=== PATIENT | female | born 1975 | race Caucasian/White ===

== ENCOUNTER 2016-11-06 13:45 | Emergency (ER) | payer MEDICAID ==
[2016-11-06] MEDS ORDERED: SODIUM CHLORIDE 0.9% 1,000 ML ONE ×2 (14:52→17:11)
[2016-11-06] MEDS ORDERED: humuLIN REG INSULIN ONE (17:09)
== END 2016-11-06 17:37 | disposition home or self-care (01) ==
LOC: ER 13:45
DX: R07.89 Other chest pain (principal); E11.65 Type 2 diabetes mellitus with hyperglycemia; Z79.4 Long term (current) use of insulin
CPT/HCPCS: 36415; 71010; 80053; 81001; 82553; 82947; 83735; 84484; 84703; 85025; 93005; 96360; 96361; 96372

== ENCOUNTER 2016-11-11 12:03 | Emergency (ER) | payer MEDICAID ==
[2016-11-11] MEDS ORDERED: DIPHENHYDRAMINE 50 MG/ML VIAL ONE (12:50)
[2016-11-11] MEDS ORDERED: METOCLOPRAMIDE 10 MG/2 ML VIAL ONE (12:50)
[2016-11-11] MEDS ORDERED: KETOROLAC 30 MG/ML VIAL ONE (13:54)
[2016-11-11] MEDS ORDERED: ACETAMIN/BUTALB/CAFF ONE (14:40)
== END 2016-11-11 14:45 | disposition home or self-care (01) ==
LOC: ER 12:03
DX: E11.65 Type 2 diabetes mellitus with hyperglycemia (principal); E11.649 Type 2 diabetes mellitus with hypoglycemia without coma; G43.909 Migraine, unspecified, not intractable, without status migrainosus
CPT/HCPCS: 36415; 80053; 81001; 82947; 85025; 96374; 96375